=== PATIENT | male | born 1990 | race Caucasian/White ===

== ENCOUNTER 2020-07-30 09:51 | Emergency (ER) | payer SELFPAY ==
[2020-07-30 10:01] VITALS: BP 136/64
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
[2020-07-30] MEDS ORDERED: DIPHtheria,PERTUSSIS(ACELL),TETANUS VACCINE/PF 0.5 ML VIAL IM ONE (10:20)
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
[2020-07-30] MEDS ORDERED: KETOROLAC 30 MG/1 ML INJ IM ONE (10:52)
== END 2020-07-30 11:16 | disposition home or self-care (01) ==
LOC: ED 09:51
DX: S09.90XA Unspecified injury of head, initial encounter (principal); Z79.899 Other long term (current) drug therapy; V23.4XXA Motorcycle driver injured in collision with car, pick-up truck or van in traffic accident, initial encounter; Y93.89 Activity, other specified; Y92.488 Other paved roadways as the place of occurrence of the external cause; Y99.8 Other external cause status
CPT/HCPCS: 70450; 90471; 90715; 96372; 99283; J1885